=== PATIENT | male | born 1950 | race American Indian/Alaskan Native ===

== ENCOUNTER 2017-07-30 08:17 | Outpatient (CLI) | payer MEDICARE ==
--- NOTE | 2017-07-30 09:51 | XRay Report ---
LEFT ELBOW THREE VIEWS: 07/30/17 08:17:00 CLINICAL: Left elbow pain. FINDINGS: No fracture or dislocation. The joint spaces are normal. No joint effusion. Focal soft tissue swelling at the olecranon. IMPRESSION: Soft tissue swelling consistent with olecranon bursitis.
== END 2017-07-30 08:18 | disposition home or self-care (01) ==
LOC: SPVIMAG 08:17
PROVIDERS: ATTEND Orthopaedic Surgery
DX: M25.522 Pain in left elbow (principal); M79.89 Other specified soft tissue disorders